=== PATIENT | female | born 1985 | race Caucasian/White ===

== ENCOUNTER 2016-08-01 01:12 | Emergency (ER) | payer MEDICAID, OTHER ==
[2016-08-01] MEDS ORDERED: MAALOX/LIDO2%VISC/SIMETHICONE 40 ML BOT ONE (02:46)
[2016-08-01] MEDS ORDERED: PANTOPRAZOLE 40 MG TABLET DR PO ONE (02:47)
[2016-08-01] MEDS ORDERED: ONDANSETRON 4 MG ODT TAB ONE (02:47)
[2016-08-01 03:07] LABS: URINE BILIRUBIN NEGATIVE (NEGATIVE); URINE BLOOD NEGATIVE (NEGATIVE); URINE GLUCOSE (UA) NEGATIVE (NEGATIVE); URINE LEUKOCYTE ESTERASE NEGATIVE (NEGATIVE); URINE NITRITE NEGATIVE (NEGATIVE); URINE PROTEIN NEGATIVE (NEGATIVE); URINE UROBILINOGEN NORMAL (0-1 mg/dl)
[2016-08-01 03:09] LABS: HCG,QUALITATIVE URINE NEGATIVE; URINE APPEARANCE CLEAR; URINE COLOR YELLOW
== END 2016-08-01 03:33 | disposition home or self-care (01) ==
LOC: ED 01:12
DX: R10.12 Left upper quadrant pain (principal); Z88.0 Allergy status to penicillin
CPT/HCPCS: 81025; 81003; 99283 ×2; A9270 ×3